=== PATIENT | male | born 1945 | race Two or more races ===

== ENCOUNTER 2018-06-05 11:50 | Day surgery (SDC) | payer MEDICARE, MEDICAID | END 2018-06-05 14:25 | disposition home or self-care (01) | LOC: DS 11:50 | PROVIDERS: ATTEND Surgery | DX: L72.3 Sebaceous cyst (principal); R20.8 Other disturbances of skin sensation; Z98.890 Other specified postprocedural states | CPT/HCPCS: 11200; 11404; 82962; 88304; 88305; A6209; A6402; J3490 ×2; J7030 ==

== ENCOUNTER 2018-12-01 07:37 | Inpatient (IN) | payer MEDICARE, MEDICAID ==
[~2018-12-01] VITALS: Ht 175.3 cm; Wt 104.3 kg
--- NOTE | 2018-12-01 07:51 | NUR ---
PT BIB DAUGHTER FROM HOME, C/O PRESSURE ON THE CHEST NON RADIATING, PT IS AAOX3, NOT IN RESPIRATORY DISTRESS, HOOKED TO MONITOR, KEPT RESTED AND COMFORTABLE, WILL CONTINUE TO MONITOR.
--- NOTE | 2018-12-01 08:00 | NUR ---
PT SEEN AND EXAMINED BY
--- NOTE | 2018-12-01 08:05 | NUR ---
IV LINE ESTABLISHED, BLOOD DRAWNED AND SENT TO LAB.
--- NOTE | 2018-12-01 08:10 | NUR ---
PAYROLL CLERK AT BEDSIDE FOR EVAL.
[2018-12-01 08:13] LABS: BASOPHILS # (AUTO) 0.1 /CMM (0.0-0.2); BASOPHILS % (AUTO) 0.9 % (0.0-2.0); EOSINOPHILS % (AUTO) 1.5 % (0.0-6.0); HEMATOCRIT 46 % (39-51); HEMOGLOBIN 15.9 g/dL (13.5-17.5); LYMPHOCYTES # (AUTO) 1.7 /CMM (0.8-4.8); LYMPHOCYTES % (AUTO) 22.7 % (20.0-44.0); MEAN CORPUSCULAR HGB CONC 35 g/dl (31.0-36.0); MEAN CORPUSCULAR VOLUME 94 fL (80-96); MONOCYTES # (AUTO) 0.6 /CMM (0.1-1.30); MONOCYTES % (AUTO) 7.6 % (2.0-12.0); NEUTROPHILS % (AUTO) 67.3 % (43.0-81.0); PLATELET COUNT (AUTO) 216 /CMM (150-450); RED BLOOD CELL COUNT(AUTO) 4.86 MIL/uL (4.5-6.0); WHITE BLOOD COUNT (AUTO) 7.4 K/uL (4.3-11.0)
[2018-12-01 08:32] LABS: CALCIUM, SERUM 8.4 mg/dL (8.5-10.1); CARBON DIOXIDE 27 mmol/L (21-32); CHLORIDE 105 mmol/L (98-107); CREATININE 1.1 mg/dL (0.6-1.3); GLUCOSE 141 mg/dL (74-106); POTASSIUM 4.2 mmol/L (3.5-5.1); SODIUM SERUM 141 mmol/L (136-145); UREA NITROGEN, BLOOD 15 mg/dL (7-18)
[2018-12-01] MEDS ORDERED: ASPIRIN 81 MG TAB.CHEW PO ONE (09:00)
[2018-12-01] MEDS ORDERED: ALBUTEROL FS 2.5 MG/3 ML VIAL.NEB NEB ONE (09:00)
[2018-12-01] MEDS ORDERED: predniSONE 20 MG TABLET PO ONE (09:00)
[2018-12-01] MEDS ORDERED: IPRATROPIUM NEB FS 0.5 MG/2.5 ML AMPUL.NEB NEB ONE (09:00)
[2018-12-01] MEDS ORDERED: predniSONE 20 MG TABLET ONE (09:03)
[2018-12-01] MEDS ORDERED: ALBUTEROL FS 2.5 MG/3 ML VIAL.NEB ONE (09:09)
[2018-12-01] MEDS ORDERED: IPRATROPIUM NEB FS 0.5 MG/2.5 ML AMPUL.NEB ONE (09:09)
[2018-12-01] MEDS ORDERED: predniSONE 10 MG TABLET ONE (09:10)
[2018-12-01] MEDS ORDERED: ASPIRIN 81 MG TAB.CHEW ONE (09:15)
[2018-12-01] MEDS ORDERED: AMIT10TA6 PO (09:19)
[2018-12-01] MEDS ORDERED: ESOM40CA52 PO (09:19)
[2018-12-01] MEDS ORDERED: RANI150T8 PO (09:19)
[2018-12-01] MEDS ORDERED: AMLO10TA7 PO (09:19)
[2018-12-01] MEDS ORDERED: ROSU10TA29 PO (09:19)
[2018-12-01] MEDS ORDERED: TAMS-12 PO (09:19)
[2018-12-01] MEDS ORDERED: SPIR25TA6 PO (09:19)
[2018-12-01] MEDS ORDERED: LOSA1TAB39 PO (09:19)
[2018-12-01] MEDS ORDERED: MECL-102 PO (09:19)
[2018-12-01] MEDS ORDERED: METF-440 PO (09:19)
[2018-12-01] MEDS ORDERED: FURO40TA5 PO (09:19)
[2018-12-01] MEDS ORDERED: CLON0.1T PO (09:19)
[2018-12-01] MEDS ORDERED: METO50TA16 PO (09:19)
--- NOTE | 2018-12-01 09:36 | NUR ---
REPORT GIVEN TO JESSE MODI FOR KATIE.
[2018-12-01 10:00] VITALS: BP 149/85
--- NOTE | 2018-12-01 10:00 | NUR ---
GAS REVERSERMONUMENT SETTER NOTE RECEIVED PATIENT FROM ER .GOT REPORT FROM BOBBY RN.PATIENT AXOX4 YEMENI SPEAKING,UNDERSTAND [place].ON RA.BRP WITH STEADY GATE.MILD WHEEZING NOTED.ON BREATHING TREATMENT.IV ON R AC INTACT AND PATENT.SAFETY MEASURES IN PLACE.BODY CHECK DONE EXCEPT BACK SACRUM AND GROIN AREA,HE DONT WANT TO REMOVE HIS CLOTHES NOW.WILL CONTINUE TO MONITOR.
[2018-12-01 10:10] VITALS: BP 149/85
[2018-12-01] MEDS ORDERED: DEXTROSE 50%-WATER 50 ML DISP.SYRIN IV PRN (10:30)
[2018-12-01] MEDS ORDERED: *INSULIN REGULAR(HUMULIN R)HUM 100 UNIT/ML VIAL SQ PRN (10:30)
[2018-12-01] MEDS ORDERED: IPRATROPIUM NEB FS 0.5 MG/2.5 ML AMPUL.NEB NEB PRN (10:30)
[2018-12-01] MEDS ORDERED: ALBUTEROL FS 2.5 MG/3 ML VIAL.NEB NEB PRN (10:30)
[2018-12-01] MEDS ORDERED: CLONIDINE HCL 0.1 MG TABLET PO PRN (10:30)
[2018-12-01] MEDS ORDERED: ENOXAPARIN SODIUM 80 MG/0.8 ML DISP.SYRIN SQ SCH (10:30)
[2018-12-01] MEDS ORDERED: MECLIZINE HCL 25 MG TABLET PO PRN (10:30)
[2018-12-01] MEDS: TAMSULOSIN 0.4 MG CAP.SR.24H PO SCH (11:03)
[2018-12-01] MEDS: FUROSEMIDE 40 MG TABLET PO SCH (11:03)
[2018-12-01] MEDS: FAMOTIDINE (20 MG) 20 MG TABLET PO SCH (11:03)
[2018-12-01] MEDS: SPIRONOLACTONE 25 MG TABLET PO SCH (11:03)
[2018-12-01] MEDS: LOSARTAN/HCTZ 50-12.5MG/ 1 EA TABLET PO SCH (11:03)
[2018-12-01 11:04] LABS: CHOLESTEROL 139 mg/dL (<200); HDL CHOLESTEROL 34 mg/dL (40-60); LDL 95 mg/dL (0-99); TRIGLYCERIDES 78 mg/dL (30-150)
[2018-12-01] MEDS: PANTOPRAZOLE 40 MG TABLET.DR PO SCH (11:04)
[2018-12-01] MEDS: AMLODIPINE BESYLATE 10 MG TABLET PO SCH (11:04)
[2018-12-01] MEDS: METFORMIN 500 MG TABLET PO SCH ×2 (11:04→16:31)
[2018-12-01] MEDS: ENOXAPARIN SODIUM 40 MG/0.4 ML DISP.SYRIN SQ SCH (11:07)
[2018-12-01] MEDS: NICOTINE PATCH (14MG) 14 MG PATCH.TD24 TD SCH (11:47)
[2018-12-01] MEDS: BLOOD SUGAR DIAGNOSTIC 1 EACH STRIP VI SCH ×3 (11:47→21:05)
[2018-12-01 12:00] VITALS: BP 133/61
[2018-12-01] MEDS: INSULIN REGULAR, HUMAN 100 UNIT/ML 3 ML VIAL SQ PRN ×2 (12:13→17:31)
[2018-12-01] MEDS: AMITRIPTYLINE HCL 10 MG TABLET PO SCH (12:18)
--- NOTE | 2018-12-01 13:00 | NUR ---
INDUSTRIAL DESIGN ENGINEER NOTE PATIENT REQUESTING TO SMOKE, MADE AWARE.GOT NEW ORDER.
[2018-12-01 16:00] VITALS: BP 120/62
[2018-12-01] MEDS: METOPROLOL TARTRATE 50 MG TABLET PO SCH (16:31)
--- NOTE | 2018-12-01 19:20 | NUR ---
TELE/RN ENTRY NOTES. PATIENT IN BED, RESTING COMFORTABLY AT THIS TIME. NO S/S OF ACUTE DISTRESS NOTED. RESPIRATION EVEN AND UNLABORED. NO SOB NOTED. PATIENT ALERT AND ORIENTED X4, DENIES ANY PAIN OR DISCOMFORT AT THIS TIME. FAMILY AT BED SIDE. PATIENT ON ROOM AIR SATURATING 96%. PATIENT ON TELE MONITORING WITH SINUS RHYTHM. RT AC IV ACCESS SITE NOTED WITH NO S/S OF INFECTION, INFILTRATION. SAFETY PRECAUTIONS IN PLACE, BED AT THE LOWEST LOCKED POSITION, CALL LIGHT WITHIN REACH. WILL CONTINUE TO MONITOR PATIENT PER PLAN OF CARE.
--- NOTE | 2018-12-01 19:29 | NUR ---
ACADEMIC SUPPORT DIRECTOR NOTE ENDORSED PATIENT TO PM NURSE FOR KATIE.ON TELE MONITOR WITH SR.DENIES ANY CHEST PAIN.COMFORTABLE.FAMILY AT BEDSIDE.ANSWERED ALL QUESTIONS.ENDORSED TO PM NURSE FOR KATIE.
[2018-12-01] MEDS: IPRATROPIUM NEB FS 0.5 MG/2.5 ML AMPUL.NEB NEB SCH (19:30)
[2018-12-01] MEDS: ALBUTEROL FS 2.5 MG/3 ML VIAL.NEB NEB SCH (19:30)
[2018-12-01 20:00] VITALS: BP 111/62
[2018-12-01] MEDS ORDERED: ATORVASTATIN 10 MG TABLET PO SCH (22:00)
[2018-12-02] VITALS: BP_SYST 111; BP_SYST 94; BP_DIAS 53; BP_DIAS 57
[2018-12-02] MEDS: ALBUTEROL FS 2.5 MG/3 ML VIAL.NEB NEB SCH ×3 (01:30→13:30)
[2018-12-02] MEDS: IPRATROPIUM NEB FS 0.5 MG/2.5 ML AMPUL.NEB NEB SCH ×3 (01:30→13:30)
[2018-12-02 04:00] VITALS: BP 106/52
[2018-12-02 05:20] LABS: BASOPHILS # (AUTO) 0.1 /CMM (0.0-0.2); BASOPHILS % (AUTO) 0.5 % (0.0-2.0); HEMATOCRIT 44 % (39-51); HEMOGLOBIN 15.1 g/dL (13.5-17.5); LYMPHOCYTES # (AUTO) 3.2 /CMM (0.8-4.8); LYMPHOCYTES % (AUTO) 26.4 % (20.0-44.0); MEAN CORPUSCULAR HGB CONC 34 g/dl (31.0-36.0); MEAN CORPUSCULAR VOLUME 94 fL (80-96); MONOCYTES # (AUTO) 0.9 /CMM (0.1-1.30); MONOCYTES % (AUTO) 7.3 % (2.0-12.0); NEUTROPHILS # (AUTO) 7.8 /CMM (1.8-8.9); NEUTROPHILS % (AUTO) 64.8 % (43.0-81.0); PLATELET COUNT (AUTO) 221 /CMM (150-450); RED BLOOD CELL COUNT(AUTO) 4.75 MIL/uL (4.5-6.0); WHITE BLOOD COUNT (AUTO) 12.1 K/uL (4.3-11.0)
[2018-12-02 05:34] LABS: ALANINE AMINOTRANSFERASE 28 U/L (12-78); ALBUMIN 3.5 g/dL (3.4-5.0); ALKALINE PHOSPHATASE 43 U/L (46-116); ASPARTATE AMINOTRANSFERASE 9 U/L (15-37); BILIRUBIN,TOTAL 0.6 mg/dL (0.2-1.0); CALCIUM, SERUM 8.8 mg/dL (8.5-10.1); CARBON DIOXIDE 24 mmol/L (21-32); CHLORIDE 100 mmol/L (98-107); CREATININE 1.2 mg/dL (0.6-1.3); GLUCOSE 105 mg/dL (74-106); MAGNESIUM 1.9 mg/dL (1.8-2.4); PHOSPHORUS 3.8 mg/dL (2.5-4.9); SODIUM SERUM 137 mmol/L (136-145); TOTAL PROTEIN, SERUM 6.6 g/dL (6.4-8.2); UREA NITROGEN, BLOOD 22 mg/dL (7-18)
--- NOTE | 2018-12-02 06:44 | NUR ---
TELE/RN EIXT NOTES. PATIENT IN BED, RESTING COMFORTABLY AT THIS TIME. NO S/S OF ACUTE DISTRESS NOTED. RESPIRATION EVEN AND UNLABORED. NO SOB NOTED. PATIENT ALERT AND ORIENTED X4, DENIES ANY PAIN OR DISCOMFORT AT THIS TIME. FAMILY AT BED SIDE. PATIENT ON ROOM AIR SATURATING 96%. PATIENT ON TELE MONITORING WITH SINUS RHYTHM. RT AC IV ACCESS SITE NOTED WITH NO S/S OF INFECTION, INFILTRATION. SAFETY PRECAUTIONS IN PLACE, BED AT THE LOWEST LOCKED POSITION, CALL LIGHT WITHIN REACH. WILL CONTINUE TO MONITOR PATIENT PER PLAN OF CARE. Addendum: 12/02/18 at 0645 by CICI GUAN RN PLEASE DISREGARD NOTES ABOVE, SAVED BY MISTAKE
--- NOTE | 2018-12-02 06:46 | NUR ---
TELE/RN EXIT NOTES. PATIENT IS UP, WALKING AROUND IN THE UNIT AT THIS TIME. NO S/S OF ACUTE DISTRESS NOTED. RESPIRATION EVEN AND UNLABORED. NO SOB NOTED, DENIES ANY PAIN OR DISCOMFORT AT THIS TIME. PATIENT ON ROOM AIR SATURATING 96%, PATIENT BEEN SATURATING BETWEEN 94-96 THROUGH OUT THE SHIFT, KEPT HIM ON O2 MONITORING ORDERED. HOB ELEVATED AT ALL THE TIME. PATIENT ON TELE MONITORING WITH SINUS RHYTHM. RT AC IV ACCESS SITE NOTED WITH NO S/S OF INFECTION, INFILTRATION. SAFETY PRECAUTIONS IN PLACE, BED AT THE LOWEST LOCKED POSITION, CALL LIGHT WITHIN REACH. WILL ENDORSE TO AM SHIFT NURSE FOR KATIE.
--- NOTE | 2018-12-02 07:20 | NUR ---
FONDANT PUFF MAKER OPENING NOTES. RECEIVED REPORT FROM PM NURSE.PATIENT IN BED, RESTING COMFORTABLY AT THIS TIME. NO S/S OF ACUTE DISTRESS NOTED. RESPIRATION EVEN AND UNLABORED. NO SOB NOTED. PATIENT ALERT AND ORIENTED X4, DENIES ANY PAIN OR DISCOMFORT AT THIS TIME. ON ROOM AIR . ON TELE MONITOR SINUS RHYTHM HR 74. IV ON R AC #18 ,INTACT AND PATENT. NO S/S OF INFECTION, INFILTRATION. SAFETY PRECAUTIONS IN PLACE, BED AT THE LOWEST LOCKED POSITION, CALL LIGHT WITHIN REACH. WILL CONTINUE TO MONITOR .
[2018-12-02] MEDS: BLOOD SUGAR DIAGNOSTIC 1 EACH STRIP VI SCH ×2 (07:38→12:11)
[2018-12-02] MEDS: PANTOPRAZOLE 40 MG TABLET.DR PO SCH (07:45)
[2018-12-02 08:00] VITALS: BP 110/63
[2018-12-02] MEDS: METFORMIN 500 MG TABLET PO SCH (08:42)
[2018-12-02] MEDS: NICOTINE PATCH (14MG) 14 MG PATCH.TD24 TD SCH (08:42)
[2018-12-02] MEDS: FAMOTIDINE (20 MG) 20 MG TABLET PO SCH (08:42)
[2018-12-02] MEDS: TAMSULOSIN 0.4 MG CAP.SR.24H PO SCH (08:42)
[2018-12-02] MEDS: AMITRIPTYLINE HCL 10 MG TABLET PO SCH (08:42)
[2018-12-02] MEDS: SPIRONOLACTONE 25 MG TABLET PO SCH (08:42)
[2018-12-02] MEDS: FUROSEMIDE 40 MG TABLET PO SCH (08:42)
[2018-12-02] MEDS: AMLODIPINE BESYLATE 10 MG TABLET PO SCH (08:42)
[2018-12-02] MEDS: ENOXAPARIN SODIUM 40 MG/0.4 ML DISP.SYRIN SQ SCH (08:55)
[2018-12-02] MEDS ORDERED: methylPREDNISolone SOD SUCC 40 MG/ML VIAL IV SCH (09:00)
[2018-12-02] MEDS ORDERED: ASPIRIN EC 81 MG TABLET.DR PO SCH (09:00)
--- NOTE | 2018-12-02 10:00 | NUR ---
RN NOTE SEEN BY UPDATED ABOUT PATIENT CONDITION WITH ALS RESULT AND WBC LEVEL.D/C PLANNING ONCE GET CLEARANCE FROM . SEEN BY DR HORTON,UPDATED ABOUT PATIENT CONDITION AND REQUEST FROM DAUGHTER IN LOW TO CALL . SPOKE TO THE FAMILY ANSWERED ALL QUESTIONS.GOT NEW ORDERS.CONSENT FOR CTA SIGNED BY PATIENT.WAITING FOR PROCEDURE.
[2018-12-02] MEDS: LOSARTAN/HCTZ 50-12.5MG/ 1 EA TABLET PO SCH (10:07)
[2018-12-02 10:08] VITALS: BP 119/61
[2018-12-02] MEDS: METOPROLOL TARTRATE 50 MG TABLET PO SCH (10:08)
[2018-12-02] MEDS ORDERED: IOHEXOL-350 100 ML VIAL IV ONE (12:31)
[2018-12-02] MEDS ORDERED: METOPROLOL TARTRATE INJ 5 MG/5 ML AMPUL ONE (12:45)
[2018-12-02] MEDS ORDERED: NITROGLYCERIN 0.4 MG/TAB BOTTLE ONE (12:48)
[2018-12-02] MEDS ORDERED: METOPROLOL TARTRATE INJ 5 MG/5 ML AMPUL IVP ONE (13:00)
[2018-12-02] MEDS ORDERED: NITROGLYCERIN 0.4 MG/TAB BOTTLE SL ONE (13:00)
[2018-12-02] MEDS ORDERED: IV NS 0.9% 500 ML IV ONE (13:00)
[2018-12-02] MEDS ORDERED: IV NS 0.9% 250 ML IV ONE (13:02)
--- NOTE | 2018-12-02 15:15 | NUR ---
MS RN NOTE RELAYED CT RESULT TO .OK TO GO HOME .CALL MADE TO ,UPDATED ABOUT PATIENT CONDITION AND 'S STAND POINT OK TO GO HOME.GOT NEW ORDER TO D/C HOME ,CONTINUE ALL HOME MEDS AND F/U WITH IN 3 DAYS.PATIENT MADE AWRAE.CALL MADE TO GRAND DAUGHTER TO PRIVATE ADVISOR PATIENT AND DO DISCHARGE .
--- NOTE | 2018-12-02 15:40 | NUR ---
MS COMPLETION MANAGER NOTE PATIENT D/C HOME IN STABLE CONDITION WITH GRAND DAUGHTER.AXOX4.NO SOB NO DISTRESS NOTED.NO C/O CHEST PAIN.IV REMOVED.PRESSURE DRESSING APPLIED.TOOK ALL BELONGINGS.EXIT CARE GIVEN TO PATIENT AND GRAND DAUGHTER.VERBALIS UNDERSTANDING.SIGNED ALL PAPERWORK.LEFT VIA PRIVATE CAR WITH GRAND DAUGHTER.REFUSED BODY CHECK.PATIENT IS SO EAGER TO GO HOME.
== END 2018-12-02 15:40 | disposition home or self-care (01) | DRG 192 ==
LOC: ER 07:39 → TELE1 09:17 → MEDSG1 12-02 08:30
PROVIDERS: ADMIT Family Medicine; ATTEND Family Medicine
DX: J44.1 Chronic obstructive pulmonary disease with (acute) exacerbation (principal); Z91.14 Patient's other noncompliance with medication regimen; I25.10 Atherosclerotic heart disease of native coronary artery without angina pectoris; E78.5 Hyperlipidemia, unspecified; I50.9 Heart failure, unspecified; I11.0 Hypertensive heart disease with heart failure; I35.0 Nonrheumatic aortic (valve) stenosis; I27.20 Pulmonary hypertension, unspecified; N40.0 Benign prostatic hyperplasia without lower urinary tract symptoms; K21.9 Gastro-esophageal reflux disease without esophagitis; M19.90 Unspecified osteoarthritis, unspecified site; G89.29 Other chronic pain; M54.5 Low back pain; F41.9 Anxiety disorder, unspecified; F32.9 Major depressive disorder, single episode, unspecified; F17.210 Nicotine dependence, cigarettes, uncomplicated; Z96.649 Presence of unspecified artificial hip joint; E66.9 Obesity, unspecified; Z68.34 Body mass index [BMI] 34.0-34.9, adult; E11.51 Type 2 diabetes mellitus with diabetic peripheral angiopathy without gangrene; H91.90 Unspecified hearing loss, unspecified ear; R06.83 Snoring; G47.33 Obstructive sleep apnea (adult) (pediatric)
CPT/HCPCS: 36415; 71045-TC; 75574; 80048-TC; 80053-TC; 80061-TC; 82962-TC; 83735-TC; 84100-TC; 84484-TC; 85025-TC; 87081-TC; 93307-TC; G0378; J1650; J1815; J2920; J3490; J7050; Q9967

== ENCOUNTER 2023-04-09 22:18 | Emergency (ER) | payer MEDICARE, OTHER ==
[~2023-04-09] VITALS: Ht 182.9 cm; Wt 107.5 kg
[~2023-04-09 22:18] MED LIST: AMIT10TA6 PO; AMLO-213 PO; CLON0.1T PO; ESOM40CA52 PO; FURO40TA5 PO; LOSA1TAB39 PO; MECL-159 PO; METF-440 PO; METO50TA16 PO; RANI150T8 PO; ROSU10TA29 PO; SPIR25TA6 PO; TAMS-12 PO
[2023-04-09 23:17] LABS: BASOPHILS # (AUTO) 0.1 K/uL (0.0-0.2); BASOPHILS % (AUTO) 0.5 % (0.0-2.0); EOSINOPHILS # (AUTO) 0.1 K/uL (0.0-0.7); EOSINOPHILS % (AUTO) 0.7 % (0.0-6.0); HEMATOCRIT 39 % (39-51); HEMOGLOBIN 13.3 g/dL (13.5-17.5); LYMPHOCYTES # (AUTO) 1.1 K/uL (0.8-4.8); MEAN CORPUSCULAR HEMOGLOBIN 34 PG (26.0-33.0); MEAN CORPUSCULAR HGB CONC 34 g/dl (31.0-36.0); MEAN CORPUSCULAR VOLUME 100 fL (80-96); MONOCYTES # (AUTO) 0.7 K/uL (0.1-1.30); MONOCYTES % (AUTO) 6.2 % (2.0-12.0); NEUTROPHILS # (AUTO) 9.9 K/uL (1.8-8.9); NEUTROPHILS % (AUTO) 83.6 % (43.0-81.0); PLATELET COUNT (AUTO) 243 K/uL (150-450); RED BLOOD CELL COUNT(AUTO) 3.94 MIL/uL (4.5-6.0); RED CELL DISTRIBUTION WIDTH 14.2 % (11.5-15.0); WHITE BLOOD COUNT (AUTO) 11.9 K/uL (4.3-11.0)
[2023-04-09 23:24] LABS: CALCIUM, SERUM 8.8 mg/dL (8.5-10.1); CREATININE 1.2 mg/dL (0.6-1.3); POTASSIUM 4.1 mmol/L (3.5-5.1)
[2023-04-10] MEDS ORDERED: ACETAMINOPHEN 325 MG TABLET ONE (01:20)
[2023-04-10] MEDS: ACETAMINOPHEN 325 MG TABLET PO ONE (01:38)
[2023-04-10 03:12] VITALS: BP 144/86; TEMP 98.9; O2SAT 94
== END 2023-04-10 03:12 | disposition home or self-care (01) ==
LOC: ER 22:27
DX: U07.1 COVID-19 (principal); I10 Essential (primary) hypertension; E11.9 Type 2 diabetes mellitus without complications; J44.9 Chronic obstructive pulmonary disease, unspecified; Z79.84 Long term (current) use of oral hypoglycemic drugs; Z79.899 Other long term (current) drug therapy
CPT/HCPCS: 36415; 71045-TC; 80048-TC; 85025-TC